=== PATIENT | male | born 1990 | race Caucasian/White ===

== ENCOUNTER 2020-07-20 16:29 | Emergency (ER) | payer BC ==
[~2020-07-20] VITALS: Ht 198.1 cm; Wt 93.0 kg
--- NOTE | 2020-07-20 17:05 | NUR ---
BIBS FRO HOME TO ER BED 1. AAOX4. NOT IN RESP DISTRESS. AMBULATORY. CAME IN FOR LOWER ABDOMINAL PAIN SINCE THIS MORNING. PT REPORT REPRTS THAT THE PAIN STARTED THIS MORNING, WENT AWAY AND PAIN STARTED BACK AT 1300 W/ ASSOCIATED NAUSEA AND VOMMITING. PAIN IS RATED 7/10 WITH SENSATION OF CRAMPING. MD WAS AT THE BEDSIDE FOR EVAL. ORDERS RECEIVED NOTED AND CARRIED OUT. IV LINE ESTABLISHED ON LAC 20G. 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
[2020-07-20] MEDS ORDERED: IV NS 0.9% 1,000 ML BAG IV ONE ×2 (17:30→18:30)
[2020-07-20] MEDS ORDERED: ONDANSETRON HCL/PF 4 MG/2 ML VIAL IVP ONE ×2 (17:30→18:30)
[2020-07-20] MEDS ORDERED: ONDANSETRON HCL/PF 4 MG/2 ML VIAL ONE ×2 (17:39→18:15)
[2020-07-20 17:43] LABS: BASOPHILS # (AUTO) 0.1 /CMM (0.0-0.2); BASOPHILS % (AUTO) 0.7 % (0.0-2.0); EOSINOPHILS % (AUTO) 0.6 % (0.0-6.0); HEMATOCRIT 47 % (39-51); HEMOGLOBIN 15.6 g/dL (13.5-17.5); LYMPHOCYTES # (AUTO) 0.8 /CMM (0.8-4.8); LYMPHOCYTES % (AUTO) 7.4 % (20.0-44.0); MEAN CORPUSCULAR HGB CONC 33 g/dl (31.0-36.0); MEAN CORPUSCULAR VOLUME 87 fL (80-96); MONOCYTES # (AUTO) 0.5 /CMM (0.1-1.30); MONOCYTES % (AUTO) 4.5 % (2.0-12.0); NEUTROPHILS % (AUTO) 86.8 % (43.0-81.0); PLATELET COUNT (AUTO) 263 /CMM (150-450); RED BLOOD CELL COUNT(AUTO) 5.46 MIL/uL (4.5-6.0); WHITE BLOOD COUNT (AUTO) 11.5 K/uL (4.3-11.0)
[2020-07-20 17:56] LABS: ALBUMIN 4.9 g/dL (3.4-5.0); BILIRUBIN,DIRECT 0.3 mg/dL (0.0-0.2); BILIRUBIN,TOTAL 1.7 mg/dL (0.2-1.0); CALCIUM, SERUM 10.3 mg/dL (8.5-10.1); CREATININE 1.3 mg/dL (0.6-1.3); POTASSIUM 3.6 mmol/L (3.5-5.1); TOTAL PROTEIN, SERUM 8.8 g/dL (6.4-8.2)
[2020-07-20] MEDS ORDERED: FAMOTIDINE/PF INJ 20 MG/2 ML VIAL IV ONE ×2 (18:15→18:30)
--- NOTE | 2020-07-20 18:20 | NUR ---
PT UNABLE TO PROVIDE URINE AT THIS TIME. PT STATES HE IS TOO DEHYDRATED TO GIVE URINE. PA MADE AWARE
--- NOTE | 2020-07-20 19:10 | NUR ---
PT STILL UNABLE TO PROVIDE URINE.
[2020-07-20] MEDS ORDERED: METOCLOPRAMIDE HCL 10 MG/2 ML VIAL IV ONE (20:00)
[2020-07-20] MEDS ORDERED: diphenhydrAMINE HCL 50 MG/ML VIAL IV ONE (20:00)
[2020-07-20] MEDS ORDERED: diphenhydrAMINE HCL 50 MG/ML VIAL ONE (20:49)
[2020-07-20] MEDS ORDERED: METOCLOPRAMIDE HCL 10 MG/2 ML VIAL ONE (20:49)
--- NOTE | 2020-07-20 21:24 | NUR ---
Patient discharged to home in stable condition. Written and verbal after care instructions given. Patient verbalizes understanding of instruction. IV removed. Catheter intact and site benign. Pressure and 4x4 applied to site. No bleeding noted.
[2020-07-20 21:35] VITALS: BP 126/89
== END 2020-07-20 21:35 | disposition home or self-care (01) ==
LOC: ER 16:43
DX: R11.2 Nausea with vomiting, unspecified (principal); F12.90 Cannabis use, unspecified, uncomplicated; J45.909 Unspecified asthma, uncomplicated; Z90.79 Acquired absence of other genital organ(s)
CPT/HCPCS: 36415; 80048; 80076; 83690; 85025; 96361; 96374; 96375; 96376; 99284; J1200; J2405 ×2; J2765; J3490; J7030 ×2

== ENCOUNTER 2021-02-10 08:14 | Emergency (ER) | payer BC ==
[~2021-02-10] VITALS: Ht 198.1 cm; Wt 97.5 kg
[2021-02-10] MEDS ORDERED: IV NS 0.9% 1,000 ML BAG IV ONE (08:30)
[2021-02-10] MEDS ORDERED: ONDANSETRON HCL/PF 4 MG/2 ML VIAL IVP ONE (08:30)
[2021-02-10] MEDS ORDERED: FAMOTIDINE/PF INJ 20 MG/2 ML VIAL IV ONE ×2 (08:30→08:37)
[2021-02-10] MEDS ORDERED: LORAZEPAM INJ 2 MG/ML VIAL IV ONE (08:30)
[2021-02-10] MEDS ORDERED: METOCLOPRAMIDE HCL 10 MG/2 ML VIAL IV ONE (08:30)
[2021-02-10] MEDS ORDERED: ONDANSETRON HCL/PF 4 MG/2 ML VIAL ONE (08:36)
[2021-02-10] MEDS ORDERED: METOCLOPRAMIDE HCL 10 MG/2 ML VIAL ONE (08:36)
[2021-02-10] MEDS ORDERED: LORAZEPAM INJ 2 MG/ML VIAL ONE (08:38)
--- NOTE | 2021-02-10 08:55 | NUR ---
ADDENDUM: Intravenous End Time Documentation: Normal saline 1 liter (IV-WO) : start time:0855 AM ; end time: 0955 AM : IV site: LW PIV # 20 Port # 1
[2021-02-10 08:58] LABS: ALBUMIN 6.3 g/dL (3.4-5.0); BILIRUBIN,DIRECT 0.2 mg/dL (0.0-0.2); BILIRUBIN,TOTAL 1.2 mg/dL (0.2-1.0); CALCIUM, SERUM 11.5 mg/dL (8.5-10.1); CREATININE 6.5 mg/dL (0.6-1.3); POTASSIUM 3.9 mmol/L (3.5-5.1); TOTAL PROTEIN, SERUM 10.9 g/dL (6.4-8.2)
[2021-02-10 09:01] LABS: BASOPHILS # (AUTO) 0.1 /CMM (0.0-0.2); BASOPHILS % (AUTO) 0.2 % (0.0-2.0); EOSINOPHILS % (AUTO) 0.1 % (0.0-6.0); HEMATOCRIT 57 % (39-51); LYMPHOCYTES # (AUTO) 1.4 /CMM (0.8-4.8); LYMPHOCYTES % (AUTO) 4.6 % (20.0-44.0); MEAN CORPUSCULAR HGB CONC 33 g/dl (31.0-36.0); MEAN CORPUSCULAR VOLUME 86 fL (80-96); MONOCYTES # (AUTO) 2.3 /CMM (0.1-1.30); MONOCYTES % (AUTO) 7.7 % (2.0-12.0); NEUTROPHILS # (AUTO) 25.8 /CMM (1.8-8.9); NEUTROPHILS % (AUTO) 87.4 % (43.0-81.0); WHITE BLOOD COUNT (AUTO) 29.5 K/uL (4.3-11.0)
[2021-02-10] MEDS ORDERED: IV NS 0.9% 1,000 ML IV ONE ×2 (09:30)
--- NOTE | 2021-02-10 10:45 | NUR ---
NO obvious distress/No acute changes. No nausea/vomiting during course of ER stay. Given 2L IVF and able to urinate - specimen to lab
[2021-02-10 10:54] LABS: PLATELET COUNT (AUTO) 359 /CMM (150-450)
[2021-02-10] MEDS ORDERED: PANT40TA2 PO (11:12)
[2021-02-10] MEDS ORDERED: ONDA4TAB5 PO (11:12)
[2021-02-10 11:19] LABS: BAND % (MANUAL) 1 % (0.0-5.0); LYMPHOCYTES % (MANUAL) 1 % (16-48); MONOCYTES % (MANUAL) 7 % (0-11.0); MYELOCYTES % 1 % (0-0); NEUTROPHILS % (MANUAL) 90 (42-76)
--- NOTE | 2021-02-10 11:30 | NUR ---
Patient discharged to home in stable condition. Written and verbal after care instructions given. Patient verbalizes understanding of instruction.IV removed. Catheter intact and site benign. Pressure and 4x4 applied to site. No bleeding noted. Pt ambulatory with a steady gait
[2021-02-10 11:31] VITALS: BP 128/82
== END 2021-02-10 11:32 | disposition home or self-care (01) ==
LOC: ER 08:18
DX: R11.15 Cyclical vomiting syndrome unrelated to migraine (principal); R19.7 Diarrhea, unspecified; J45.909 Unspecified asthma, uncomplicated; Z90.49 Acquired absence of other specified parts of digestive tract; Z60.2 Problems related to living alone; Z79.899 Other long term (current) drug therapy
CPT/HCPCS: 36415; 80048; 80076; 80307; 83690; 85007; 85025; 96361; 96374; 96375; 99284; J2060; J2405; J2765; J3490; J7030 ×2

== ENCOUNTER 2022-01-22 07:26 | Emergency (ER) | payer BC ==
[~2022-01-22] VITALS: Ht 195.6 cm; Wt 97.1 kg
[~2022-01-22 07:26] MED LIST: ONDA4TAB5 PO; PANT40TA2 PO
[2022-01-22] MEDS ORDERED: IV NS 0.9% 1,000 ML BAG IV ONE (08:00)
[2022-01-22] MEDS ORDERED: KETOROLAC TROMETHAMINE INJ 30 MG/ML VIAL IV ONE ×2 (08:00→09:30)
[2022-01-22] MEDS ORDERED: ONDANSETRON HCL/PF 4 MG/2 ML VIAL IVP ONE (08:00)
--- NOTE | 2022-01-22 08:00 | NUR ---
BIBS FOR C/O ABDOMINAL PAIN/CRAMPING, NAUSEA VOMITING X 1 WEEK. THE PATIENT RATES PAIN 6/10. ABDOMEN SOFT AND NON-DISTENDED. WILL CONTINUE TO MONITOR THE PATIENT.
[2022-01-22] MEDS ORDERED: ONDANSETRON HCL/PF 4 MG/2 ML VIAL ONE ×2 (08:02→13:09)
[2022-01-22] MEDS ORDERED: KETOROLAC TROMETHAMINE 15 MG/ML VIAL ONE ×2 (08:02→09:46)
--- NOTE | 2022-01-22 08:02 | NUR ---
IV LINE IS ESTABLISHED, BLOOD SPECIMEN COLLECTED AND SENT TO THE LAB. THE LINE IS SALINE LOCKED.
[2022-01-22 08:19] LABS: PLATELET COUNT (AUTO) 257 K/uL (150-450)
--- NOTE | 2022-01-22 08:22 | NUR ---
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
--- NOTE | 2022-01-22 08:25 | NUR ---
THE PATIENT IS TAKEN TO CT VIA [facility]
--- NOTE | 2022-01-22 08:34 | NUR ---
THE PATIENT IS BACK FROM CT VIA [facility]
[2022-01-22 08:41] LABS: BASOPHILS % (AUTO) 0.5 % (0.0-2.0); EOSINOPHILS % (AUTO) 1.4 % (0.0-6.0); HEMATOCRIT 53 % (39-51); HEMOGLOBIN 17.9 g/dL (13.5-17.5); LYMPHOCYTES # (AUTO) 1.2 K/uL (0.8-4.8); LYMPHOCYTES % (AUTO) 12.3 % (20.0-44.0); MEAN CORPUSCULAR HGB CONC 34 g/dl (31.0-36.0); MEAN CORPUSCULAR VOLUME 84 fL (80-96); MONOCYTES % (AUTO) 10.8 % (2.0-12.0); RED BLOOD CELL COUNT(AUTO) 6.29 MIL/uL (4.5-6.0); WHITE BLOOD COUNT (AUTO) 9.4 K/uL (4.3-11.0)
[2022-01-22 09:01] LABS: BILIRUBIN,URINE MODERATE (NEGATIVE); COLOR,URINE DARK YELLOW (YELLOW); LEUKOCYTE ESTERASE ,URINE NEGATIVE (NEGATIVE); NITRITE, URINE NEGATIVE (NEGATIVE); PROTEIN,URINE 30 mg/dl (NEGATIVE); UGLUCOSE NEGATIVE (NEGATIVE)
[2022-01-22] MEDS ORDERED: MORPHINE SULFATE INJ 2 MG/ML DISP.SYRIN IV ONE (09:30)
[2022-01-22] MEDS ORDERED: MORPHINE SULFATE INJ 2 MG/ML DISP.SYRIN ONE (09:47)
[2022-01-22 09:57] LABS: CALCIUM, SERUM 10.2 mg/dL (8.5-10.1); CREATININE 1.3 mg/dL (0.6-1.3); POTASSIUM 3.2 mmol/L (3.5-5.1)
[2022-01-22 10:05] LABS: ALBUMIN 5.2 g/dL (3.4-5.0); BILIRUBIN,DIRECT 0.4 mg/dL (0.0-0.2); BILIRUBIN,TOTAL 2.5 mg/dL (0.2-1.0); TOTAL PROTEIN, SERUM 9.3 g/dL (6.4-8.2)
--- NOTE | 2022-01-22 10:48 | NUR ---
THE PATIENT IS TAKEN TO MRI DEPT
[2022-01-22 11:08] LABS: BACTERIA,URINE Few /HPF (None Seen); HYALINE CASTS, URINE Few /LPF (None Seen); MUCUS,URINE Few /LPF (None Seen); SQUAMOUS EPITHELIAL CELL,UR None Seen /HPF (None Seen)
--- NOTE | 2022-01-22 11:15 | NUR ---
THE PATIENT IS BACK FROM MRI
[2022-01-22] MEDS ORDERED: ONDA4TAB5 PO (12:58)
[2022-01-22] MEDS ORDERED: HYDR-4675 PO (12:58)
[2022-01-22] MEDS ORDERED: ONDANSETRON HCL/PF 4 MG/2 ML VIAL IV ONE (13:00)
--- NOTE | 2022-01-22 13:05 | NUR ---
IV removed. Catheter intact and site benign. Pressure and 4x4 applied to site. No bleeding noted.
[2022-01-22 13:06] VITALS: BP 130/81
--- NOTE | 2022-01-22 13:06 | NUR ---
Patient discharged to home in stable condition. Written and verbal after care instructions given. Patient verbalizes understanding of instruction.
[2022-01-22] MEDS ORDERED: HYDR-4209 PO ×2 (14:47→14:49)
== END 2022-01-22 13:08 | disposition home or self-care (01) ==
LOC: ER 07:30
DX: R11.2 Nausea with vomiting, unspecified (principal); R10.30 Lower abdominal pain, unspecified; E80.6 Other disorders of bilirubin metabolism; J45.909 Unspecified asthma, uncomplicated; Z90.49 Acquired absence of other specified parts of digestive tract; Z60.2 Problems related to living alone
CPT/HCPCS: 36415; 71045; 74176; 74181; 80048; 80076; 81001; 83690; 85025; 96361; 96374; 96375; 96376; 99285; J1885 ×2; J2270; J2405 ×2; J7030

== ENCOUNTER 2022-03-04 10:40 | Emergency (ER) | payer BC ==
[~2022-03-04] VITALS: Ht 195.6 cm; Wt 95.3 kg
[~2022-03-04 10:40] MED LIST changes: +HYDR-4209 PO; -PANT40TA2 PO
--- NOTE | 2022-03-04 11:36 | NUR ---
BIBS THIS 32YO MALE PATIENT WITH COMPLAINT OF ABDOMINAL PAIN SINCE 10 PM 06/08, BLOOD STREAK VOMITUS THIS AM AND DIARRHEA X3. PATIENT CLAIMED HE HAD ELEVATED LABS LAST MONTH AND HE DOESN'T FEEL GOOD THAT'S WHY HE CAME BACK. PLACED IN BED. VITALS CHECKED.
[2022-03-04 13:17] LABS: BASOPHILS # (AUTO) 0.1 K/uL (0.0-0.2); BASOPHILS % (AUTO) 0.5 % (0.0-2.0); EOSINOPHILS % (AUTO) 0.6 % (0.0-6.0); HEMATOCRIT 49 % (39-51); HEMOGLOBIN 15.9 g/dL (13.5-17.5); LYMPHOCYTES # (AUTO) 0.7 K/uL (0.8-4.8); MEAN CORPUSCULAR HGB CONC 33 g/dl (31.0-36.0); MEAN CORPUSCULAR VOLUME 85 fL (80-96); MONOCYTES # (AUTO) 0.6 K/uL (0.1-1.30); MONOCYTES % (AUTO) 4.2 % (2.0-12.0); NEUTROPHILS # (AUTO) 12.4 K/uL (1.8-8.9); NEUTROPHILS % (AUTO) 89.7 % (43.0-81.0); PLATELET COUNT (AUTO) 294 K/uL (150-450); RED BLOOD CELL COUNT(AUTO) 5.68 MIL/uL (4.5-6.0); WHITE BLOOD COUNT (AUTO) 13.8 K/uL (4.3-11.0)
[2022-03-04] MEDS ORDERED: ONDANSETRON HCL/PF 4 MG/2 ML VIAL IVP ONE (13:30)
[2022-03-04] MEDS ORDERED: IV NS 0.9% 1,000 ML BAG IV ONE ×2 (13:30→15:30)
--- NOTE | 2022-03-04 13:30 | NUR ---
ADDENDUM: Intravenous End Time Documentation: 1. Normal saline 1 liter (IV-WO) : start time: 1330 PM ; end time: 1430 PM : IV site:RFA PIV # 20 Port # 1 2. Normal saline 1 liter (IV-WO) : start time: 1530 PM; end time: 1630 PM : IV site:RFA PIV # 20 Port # 1
--- NOTE | 2022-03-04 13:30 | NUR ---
LINE STARTED ON RFA G#20, FLUSHING WELL
[2022-03-04] MEDS ORDERED: ONDANSETRON HCL/PF 4 MG/2 ML VIAL ONE (13:35)
[2022-03-04 13:46] LABS: CALCIUM, SERUM 10.9 mg/dL (8.5-10.1); CREATININE 1.4 mg/dL (0.6-1.3); POTASSIUM 3.9 mmol/L (3.5-5.1)
[2022-03-04 13:51] LABS: BILIRUBIN,DIRECT 0.2 mg/dL (0.0-0.2); BILIRUBIN,TOTAL 1.3 mg/dL (0.2-1.0); TOTAL PROTEIN, SERUM 8.4 g/dL (6.4-8.2)
[2022-03-04] MEDS ORDERED: MORPHINE SULFATE INJ 2 MG/ML DISP.SYRIN IV ONE (14:30)
[2022-03-04] MEDS ORDERED: MORPHINE SULFATE INJ 2 MG/ML DISP.SYRIN ONE (14:35)
[2022-03-04] MEDS ORDERED: MORPHINE SULFATE INJ 4 MG/ML DISP.SYRIN ONE (14:37)
[2022-03-04 15:37] LABS: BILIRUBIN,URINE MODERATE (NEGATIVE); COLOR,URINE YELLOW (YELLOW); LEUKOCYTE ESTERASE ,URINE NEGATIVE (NEGATIVE); NITRITE, URINE NEGATIVE (NEGATIVE); PROTEIN,URINE 100 mg/dl (NEGATIVE); UGLUCOSE NEGATIVE (NEGATIVE)
[2022-03-04 16:53] LABS: BACTERIA,URINE FEW /HPF (None Seen); RBC,URINE 0-2 /HPF (0-2); SQUAMOUS EPITHELIAL CELL,UR FEW /HPF (None Seen); WBC,URINE 0-2 /HPF (0-3)
[2022-03-04] MEDS ORDERED: OXYC-128 PO ×2 (16:58→17:24)
[2022-03-04] MEDS ORDERED: ONDA4TAB5 PO (17:25)
[2022-03-04 17:49] VITALS: BP 112/68
== END 2022-03-04 17:50 | disposition home or self-care (01) ==
LOC: ER 10:46
DX: R11.15 Cyclical vomiting syndrome unrelated to migraine (principal); J45.909 Unspecified asthma, uncomplicated; Z90.49 Acquired absence of other specified parts of digestive tract; Z60.2 Problems related to living alone; Z79.899 Other long term (current) drug therapy
CPT/HCPCS: 36415; 80048; 80076; 81001; 83690; 85025; 87086; 96361; 96374; 96375; 99284; J2270; J2405; J7030 ×2